=== PATIENT | female | born 1970 | race Caucasian/White ===

== ENCOUNTER 2022-10-21 15:51 | Emergency (ER) | payer MEDICAID, OTHER ==
[~2022-10-21] VITALS: Ht 170.2 cm; Wt 66.0 kg
[2022-10-21 16:06] VITALS: BP 150/78
== END 2022-10-21 19:45 | disposition left against medical advice (07) ==
LOC: ER 15:51
DX: R10.9 Unspecified abdominal pain (principal); Z53.21 Procedure and treatment not carried out due to patient leaving prior to being seen by health care provider
CPT/HCPCS: 99281